=== PATIENT | female | born 1995 | race Caucasian/White ===

== ENCOUNTER 2016-11-12 19:38 | Emergency (ER) | payer MEDICAID ==
[2016-11-12 20:05] LABS: Urine Bilirubin Negative (NEGATIVE); Urine Blood Negative /ul (NEGATIVE); Urine Ketone Negative (NEGATIVE); Urine Nitrite Negative (NEGATIVE); Urine Protein Negative (NEGATIVE); Urine Specific Gravity <=1.005 SP.GR. (1.005-1.010); Urine Urobilinogen Normal (NORMAL)
[2016-11-12 20:08] LABS: Hematocrit 35.4 % (37.0-47.0); Hemoglobin 12.8 gm/dL (12.5-16.0); Mean Cell Volume 85.7 fl (78-100); Mean Corpuscular Hgb Conc 36.2 g/dl (32-36); Mean Platelet Volume 9.1 fl (6.0-9.5); Neutrophil # 3.7 K/mm3 (1.3-6.0); Neutrophil % 63.3 % (42-75.0); Platelet Count 182 K/mm3 (150-450); Red Blood Count 4.13 M/mm3 (4.2-5.4); Red Cell Distribution Width 11.8 % (11.5-14.0); White Blood Count 5.8 K/mm3 (4.0-10.5)
[2016-11-12 20:14] LABS: Urine Appearance Clear; Urine Bacteria TRACE; Urine Color Yellow; Urine RBC None Seen /hpf (0-5); Urine WBC None Seen /hpf (0-5)
--- OUTSIDE RECORDS SUMMARY | 2016-11-12 20:20 | XMS REPORT | Continuity of Care Document ---
:1995 Author Organization [facility] ([facility]) Address [address] [place] [address] Phone [phone] Care Team Providers Name Role Phone [facility] Primary Care Provider [phone] Source Comments This disclosure is being made pursuant to the Care Everywhere program, applicable federal and state laws, and may not contain all informaitonavailable regarding this patient.[facility] ([facility]) Active Allergies and Adverse Reactions No Known Allergies Current Medications Prescription Sig. Disp. Refills Start Date End Date Status metoPROLol tartrate 25 as needed. 4 03/25/2016 Active mg tablet VENTOLIN HFA 90 as needed. 11 03/08/2016 Active mcg/Actuation inhaler tobramycin-dexamethaso Instill one drop 2.5 mL 0 05/06/2016 Active ne 0.3-0.1 % in each eye that ophthalmic suspension underwent surgery four times a day for one week acetaminophen 325 mg Take 1 tablet (325 30 tablet 1 05/07/2016 Active tablet mg total) by mouth every 4 hours as needed for pain. 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 Social History Tobacco Use Types Packs/Day Years Used Date Never Assessed Last Filed Vital Signs Vital Sign Reading Time Taken Blood Pressure 101/61 05/07/2016 11:30 AM PET TECHNOLOGIST Pulse 70 05/07/2016 6:33 AM PET TECHNOLOGIST Temperature 36.7 C (98.1 F) 05/07/2016 10:16 AM PET TECHNOLOGIST Respiratory Rate 12 05/07/2016 11:30 AM PET TECHNOLOGIST Height 1.676 m (5' 5.98") 04/17/2016 4:27 PM PET TECHNOLOGIST Weight 54.9 kg (121 lb 0.5 oz) 05/07/2016 6:33 AM PET TECHNOLOGIST Body Mass Index 19.54 05/07/2016 6:33 AM PET TECHNOLOGIST Oxygen Saturation 98% 05/07/2016 11:30 AM PET TECHNOLOGIST Plan of Care Health Maintenance Due Date Last Done Comments Hepatitis B Vaccine (1 of 3 - Primary Series) 1996 HPV Vaccine (1 of 3 - Female/Unknown 3 Dose Series) 11/05/2007 Tdap Vaccine 11/05/2007 Meningococcal Vaccine (1 of 1) 2012 Lipid Disorder Screening 2014 MMR Vaccine 2014 Td Vaccine 2014 Varicella Vaccine (1 of 2 - Adult - No Evidence of 2014 Immunity) Influenza Vaccine: Seasonal (#1) 01/08/2016 Results from Last 3 Months Not on file
[2016-11-12 20:21] LABS: Albumin * 4.2 gm/dl (3.4-5.0); Anion Gap 14.6 mmol/L (6.8-13.8); BUN/Creatinine Ratio 12.3 (9.0-21.6); Bilirubin, Total 0.6 mg/dL (0.0-1.1); Ca. Corrected For Albumin 8.8 mg/dL (8.4-10.2); Calcium * 9.3 mg/dL (7.9-10.9); Carbon Dioxide 24.6 mmol/L (24-32.6); Potassium 3.2 mmol/L (3.4-4.6); Total Protein 7.4 gm/dL (6.2-8.2)
[2016-11-12] MEDS ORDERED: NORMAL SALINE 1,000 ML IV ONE (20:29)
[2016-11-12] MEDS ORDERED: KETOROLAC TROMETHAMINE 30 MG/ML VIAL ONE (20:29)
[2016-11-12] MEDS ORDERED: KETOROLAC TROMETHAMINE 30 MG/ML VIAL IV ONE (20:29)
--- NOTE | 2016-11-12 20:31 | ERNOTE ---
Abdominal HPI - General Chief Complaint: Abdominal Pain Source: patient Exam Limitations: no limitations - Immun/Allergies/Home Medications Immunizatons: IMMUNIZATION HX Immunizations Up to Date Yes History of Influenza Vaccine No Hx Pneumococcal Vaccination No Allergies/Adverse Reactions: Allergies No Known Allergies Allergy (Verified 11/12/16 19:46) Home Medications: HOME MEDICATIONS NK [No Home Medication] 06/27/15 [Last Taken Unknown] - History of Present Illness Narrative: Pt had onset of periumbilical abdominal pain around 17:00 today this progressed to right flank pain and is constant and severe Timing: constant Quality: moderate, severe Activities at Onset: none Modifying Factors - (Worsens): Present: lying down Associated Symptoms: Present: diaphoresis - mild. Absent: denies symptoms Prior Abdominal Problems: Present: none Review of Systems - Review of Systems Constitutional: Absent: recent illness, fever, chills EYE: Present: no symptoms reported ENT: Present: no symptoms reported Respiratory: Absent: shortness of breath, cough Cardiology: Absent: chest pain, palpitations Gastrointestinal/Abdominal: Present: See HPI. Absent: nausea, vomiting, constipation Genitourinary: Absent: frequency, pain, dysuria, hematuria Musculoskeletal: Absent: muscle pain Skin: Absent: rash Neurological: Present: dizziness/light-headedness. Absent: numbness, tingling Endocrine: Present: no symptoms reported Hematologic/Lymphatic: Present: no symptoms reported Psych: Present: no symptoms reported - Patient's Past Medical History Patient History - Medical: Headache, UTI'S, Other Patient History - Cardiac/Respiratory: No pertinent hx Patient History - Cancer: No Hx of Cancer Patient History - Surgical Procedures: Colonoscopy, EGD Patient History - Other: None LMP (Calendar): 10/11/16 - Family History Mother Family History - Cardiac/Respiratory: COPD - Social History Living Situations: home Abuse History: No History of abuse Psych History: No pertinent hx Does anyone smoke in the home?: Yes Smoking Status: Former smoker Have you smoked in the past 12 months: Yes Alcohol Use: none Drug Use: none - Immunizations Immunizations Up to Date: Yes Hx Pneumococcal Vaccination: No History of Influenza Vaccine: No Physical Exam - Physical Exam General Appearance: Present: wd/wn, alert, mild distress Eye Exam: Normal inspection: bilateral, PERRL: bilateral Neck: Present: normal inspection, supple Respiratory: Present: no respiratory distress, normal breath sounds, chest nontender Cardiovascular/Chest: Present: regular rate, rhythm, no murmur, normal peripheral pulses Gastrointestinal/Abdominal: Present: normal bowel sounds, tenderness - right flank. Absent: guarding, rebound, McBurney sign Back Exam: Present: CVA tenderness (R) Extremity Exam: Present: normal inspection, normal range of motion, no edema Neurological Exam: Present: alert, oriented, no motor/sensory deficits Skin Exam: Present: normal color, warm/dry Lymphatic Exam: Present: no adenopathy ED Progress - Results and Orders Patient's Lab Results:: I have reviewed the patient's lab results. Results and Orders: Laboratory Tests 11/12/16 11/12/16 11/12/16 19:52 19:52 20:02 WBC 5.8 Hgb 12.8 Hct 35.4 L Plt Count 182 Sodium Potassium Chloride Carbon Dioxide Anion Gap BUN Creatinine Est GFR (Non-Af Amer) Random Glucose Calcium Total Bilirubin AST ALT Alkaline Phosphatase Total Protein Albumin Amylase Lipase Urine Color Yellow Urine Appearance Clear Urine pH 6.0 Ur Specific [place] <=1.005 Urine Protein Negative Urine Glucose (UA) Negative Urine Ketones Negative Urine Blood Negative Urine Nitrate Negative Urine Bilirubin Negative Urine Urobilinogen Normal Ur Leukocyte Esterase Negative Urine RBC None seen Urine WBC None seen Ur Epithelial Cells 5-10 H Urine Bacteria Trace Urine Culture Comments No culture indicated Urine HCG, Qual Negative 11/12/16 20:02 WBC Hgb Hct Plt Count Sodium 141 Potassium 3.2 L Chloride 105 Carbon Dioxide 24.6 Anion Gap 14.6 H BUN 10 Creatinine 0.81 Est GFR (Non-Af Amer) 96 Random Glucose 125 H Calcium 9.3 Total Bilirubin 0.6 AST 16 ALT 15 L Alkaline Phosphatase 63 Total Protein 7.4 Albumin 4.2 Amylase 37 Lipase 117 Urine Color Urine Appearance Urine pH Ur Specific [place] Urine Protein Urine Glucose (UA) Urine Ketones Urine Blood Urine Nitrate Urine Bilirubin Urine Urobilinogen Ur Leukocyte Esterase Urine RBC Urine WBC Ur Epithelial Cells Urine Bacteria Urine Culture Comments Urine HCG, Qual - Vital Signs Patient's Vital Signs:: I have reviewed the patient's vital signs. Vital Signs: Vital Signs 11/12/16 11/12/16 19:41 19:58 Temperature 37.3 C 37.3 C Pulse Rate 120 H 120 H Respiratory 24 H 24 H Rate Blood Pressure 152/70 152/70 O2 Sat by Pulse 100 100 Oximetry - Progress/Reassessment Chief Complaint: Abdominal Pain Progress:: Improved Progress Note-Subjective: 11/13/16 03:58 discussed mostly normal lab work and x-rays showing moderate stool retention. Pt states that she does have a chronic problem with constipation for which she is taking a fiber supplement. She occasionally takes a laxative when she hasn' t had a BM for more than a week. Departure - Departure Clinical Impression: Constipation Qualifiers: Constipation type: slow transit constipation Qualified Code(s): K59.01 - Slow transit constipation Disposition: Home self-care Condition: Good Instructions: Constipation, Adult, [id number] Additional Instructions: continue to drink plenty of water and take a laxative if you have not had a BM for 3-4 days. See your regular doctor as needed
[2016-11-12] MEDS ORDERED: MAGNESIUM HYDROXIDE 30 ML UDC PO ONE (21:59)
[2016-11-12 22:07] VITALS: BP 101/59
== END 2016-11-12 22:08 | disposition home or self-care (01) ==
LOC: ER 19:38
DX: K59.01 Slow transit constipation (principal); Z87.440 Personal history of urinary (tract) infections; Z87.891 Personal history of nicotine dependence

== ENCOUNTER 2017-01-14 20:32 | Emergency (ER) | payer MEDICAID ==
[2017-01-14] MEDS ORDERED: ONDANSETRON HCL/PF 2 MG/ML VIAL IV ONE (21:22)
--- NOTE | 2017-01-14 21:31 | ERNOTE ---
Dizziness ER Record Presenting Symptoms: dizziness Time Seen by Provider: 01/14/17 21:14 Source: patient, family Exam Limitations: no limitations Immunizations: IMMUNIZATION HX Immunizations Up to Date Yes History of Influenza Vaccine No Hx Pneumococcal Vaccination No Allergies/Adverse Reactions: Allergies Allergy/AdvReac Type Severity Reaction Status Date / Time No Known Allergies Allergy Verified 11/12/16 19:46 Home Medications: HOME MEDICATIONS Metoprolol/Hydrochlorothiazide [Metoprolol-Hctz 100-25 mg Tab] 1 each PO DAILY 01/14/17 [Last Taken Unknown] - History of Present Illness Narrative: pt states that she has neurogenic syncope and before she passes out she usually sees spots in her vision and gets dizzy. She states she has had these symptoms this evening but has not passed out. She has been to the ED previously for this issue Timing and Duration: gradual onset Episodes lasting:: 10 minutes up to many hours Noted on awakening:: No Associated Symptoms: Present: nausea. Absent: vomiting Sense of movement: Present: vague Review of Systems - Review of Systems Constitutional: Absent: recent illness EYE: Present: no symptoms reported ENT: Present: no symptoms reported Respiratory: Present: no symptoms reported Cardiology: Present: no symptoms reported Genitourinary: Present: frequency, dysuria Musculoskeletal: Absent: back pain Neurological: Absent: headache - Patient's Past Medical History Patient History - Medical: Headache, UTI'S, Other Patient History - Cardiac/Respiratory: No pertinent hx, Arrhythmias Patient History - Cancer: No Hx of Cancer Patient History - Surgical Procedures: Colonoscopy, EGD Patient History - Other: None LMP (females 10-50): 3 weeks LMP (Calendar): 10/11/16 - Family History Mother Family History - Cardiac/Respiratory: COPD - Social History Living Situations: home Abuse History: No History of abuse Psych History: No pertinent hx Does anyone smoke in the home?: Yes Smoking Status: Current every day smoker Have you smoked in the past 12 months: Yes Do you dip or chew tobacco: No Patient requests Smoking Cessation Consult: No Initiate information on Smoking Cessation: No Alcohol Use: none Drug Use: none - Immunizations Immunizations Up to Date: Yes Hx Pneumococcal Vaccination: No History of Influenza Vaccine: No Physical Exam - Physical Exam General Appearance: Present: wd/wn, alert, no apparent distress Head Exam: Present: normal inspection, no evidence of injury Eye Exam: Normal inspection: bilateral, PERRL: bilateral Ears, Nose, Throat: Present: normal ENT inspection Neck: Present: normal inspection, nontender Respiratory: Present: no respiratory distress, normal breath sounds, lungs clear Cardiovascular/Chest: Present: regular rate, rhythm, no murmur Gastrointestinal/Abdominal: Present: normal bowel sounds, nontender Back Exam: Present: normal inspection, normal range of motion, no vertebral tenderness Extremity Exam: Present: normal inspection, normal range of motion, no edema Neurological Exam: Present: alert, oriented, normal mood/affect, no motor/ sensory deficits Skin Exam: Present: normal color, warm/dry Lymphatic Exam: Present: no adenopathy ED Progress - Results and Orders Patient's Lab Results:: I have reviewed the patient's lab results. Results and Orders: Laboratory Tests 01/14/17 01/14/17 01/14/17 20:53 22:18 22:18 WBC 9.0 Hgb 12.6 Hct 36.3 L Plt Count 166 Sodium 142 Potassium 3.3 L Chloride 106 Carbon Dioxide 25.3 BUN 6 Creatinine 0.65 Random Glucose 107 Calcium 8.7 AST 13 ALT 13 L Urine Color Yellow Urine Appearance Clear Urine pH 6.5 Ur Specific [place] <=1.005 Urine Protein Negative Urine Glucose (UA) Negative Urine Ketones Negative Urine Blood Negative Urine Nitrate Negative Urine Bilirubin Negative Urine Urobilinogen Normal Ur Leukocyte Esterase Negative Urine RBC None seen Urine WBC None seen Ur Epithelial Cells 0-5 Urine Bacteria Trace Urine Culture Comments No culture indicated - Vital Signs Patient's Vital Signs:: I have reviewed the patient's vital signs. Vital Signs: Vital Signs 01/14/17 01/14/17 20:41 20:55 Temperature 36.7 C Pulse Rate 83 77 Respiratory 16 20 Rate Blood Pressure 132/80 119/57 O2 Sat by Pulse 99 99 Oximetry - Progress/Reassessment Chief Complaint: Dizziness Progress:: Improved Progress Note-Subjective: Pt much better after getting zofran. labs mostly WNL. Slight decrease in potassium discussed with patient and foods high in potassium suggested to keep her potassium level up. Departure Clinical Impression: Visual symptoms, Nausea - Departure Disposition: Home Follow Up Needed Condition: Good Instructions: Nausea, Adult, Visual Disturbances Additional Instructions: See your regular doctor as needed. increase your potassium intake. Referrals: Marylin Francis MD [Primary Care Provider] -
[2017-01-14] MEDS ORDERED: ONDANSETRON HCL/PF 2 MG/ML VIAL ONE (21:33)
[2017-01-14 21:38] LABS: Urine Bilirubin Negative (NEGATIVE); Urine Blood Negative /ul (NEGATIVE); Urine Ketone Negative (NEGATIVE); Urine Nitrite Negative (NEGATIVE); Urine Protein Negative (NEGATIVE); Urine Specific Gravity <=1.005 SP.GR. (1.005-1.010); Urine Urobilinogen Normal (NORMAL); Urine pH 6.5 pH (5.0-7.0)
[2017-01-14 21:50] LABS: Urine Appearance Clear; Urine Bacteria TRACE; Urine Color Yellow; Urine RBC None Seen /hpf (0-5); Urine WBC None Seen /hpf (0-5)
[2017-01-14 22:18] LABS: Hematocrit 36.3 % (37.0-47.0); Hemoglobin 12.6 gm/dL (12.5-16.0); Mean Cell Volume 88.5 fl (78-100); Mean Corpuscular Hemoglobin 30.7 pg (27-31); Mean Corpuscular Hgb Conc 34.7 g/dl (32-36); Mean Platelet Volume 9.2 fl (6.0-9.5); Neutrophil # 6.4 K/mm3 (1.3-6.0); Neutrophil % 70.8 % (42-75.0); Platelet Count 166 K/mm3 (150-450); Red Cell Distribution Width 11.9 % (11.5-14.0)
[2017-01-14 22:29] VITALS: BP 96/57
[2017-01-14 22:31] LABS: Albumin * 3.9 gm/dl (3.4-5.0); BUN/Creatinine Ratio 9.2 (9.0-21.6); Bilirubin, Total 0.3 mg/dL (0.0-1.1); Ca. Corrected For Albumin 8.5 mg/dL (8.4-10.2); Calcium * 8.7 mg/dL (7.9-10.9); Carbon Dioxide 25.3 mmol/L (24-32.6); Potassium 3.3 mmol/L (3.4-4.6); Total Protein 6.9 gm/dL (6.2-8.2)
== END 2017-01-14 22:43 | disposition home or self-care (01) ==
LOC: ER 20:32
DX: H57.9 Unspecified disorder of eye and adnexa (principal); R11.0 Nausea; Z87.440 Personal history of urinary (tract) infections; F17.200 Nicotine dependence, unspecified, uncomplicated
CPT/HCPCS: 36415; 80053; 81001; 85025; 96374; 99283; J2405

== ENCOUNTER 2017-03-17 21:33 | Emergency (ER) | payer MEDICAID, OTHER ==
[2017-03-17 21:47] VITALS: BP 121/82
--- NOTE | 2017-03-17 22:06 | ERNOTE ---
Lower Extremity HPI - General Lower Extremities Pain: ankle: right - medial pain Time Seen by Provider: 03/17/17 21:54 Source: patient Exam Limitations: no limitations - Immun/Allergies/Home Medications Immunizations: IMMUNIZATION HX Immunizations Up to Date Yes History of Influenza Vaccine Yes Hx Pneumococcal Vaccination Yes Allergies/Adverse Reactions: Allergies Allergy/AdvReac Type Severity Reaction Status Date / Time No Known Allergies Allergy Verified 03/17/17 21:47 Home Medications: HOME MEDICATIONS Metoprolol/Hydrochlorothiazide [Metoprolol-Hctz 100-25 mg Tab] 1 each PO DAILY 01/14/17 [Last Taken Unknown] Albuterol Sulfate [Proair Hfa] 8.5 gm IH PRN PRN 03/17/17 [Last Taken Unknown] Nabumetone 750 mg PO BID #20 tablet 03/17/17 [Last Taken Unknown] - History of Present Illness Narrative: 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 It was mildly uncomfortable then. Yesterday the pain increased and today she states the pain is much worse. Occurred: other - 2 days ago Location of Incident: work Method of Injury: Reports: twisted Reason for Fall: Reports: tripped Loss of Consciousness: Reports: no loss of consciousness Modifying Factors - (Improves): Reports: cold therapy Modifying Factors - (Worsens): Reports: movement Associated Symptoms: Reports: snapping, popping sensation - since the incident Other Injuries: Reports: none Subsequent Symptoms: Denies: sensory loss, numbness, motor loss Review of Systems - Review of Systems Constitutional: Absent: recent illness EYE: Present: no symptoms reported ENT: Present: no symptoms reported Respiratory: Present: no symptoms reported Cardiology: Present: no symptoms reported Musculoskeletal: Present: See HPI. Absent: back pain Skin: Absent: rash Neurological: Absent: numbness, tingling - Patient's Past Medical History Patient History - Medical: Headache, UTI'S, Other Patient History - Cardiac/Respiratory: No pertinent hx, Arrhythmias Patient History - Cancer: No Hx of Cancer Patient History - Surgical Procedures: Colonoscopy, EGD Patient History - Other: None LMP (females 10-50): now - Family History Mother Family History - Cardiac/Respiratory: COPD - Social History Living Situations: home Abuse History: No History of abuse Psych History: No pertinent hx Smoking Status: Current every day smoker Alcohol Use: none Drug Use: none - Immunizations Immunizations Up to Date: Yes Hx Pneumococcal Vaccination: Yes History of Influenza Vaccine: Yes Physical Exam - Physical Exam General Appearance: Present: wd/wn, alert, no apparent distress Head Exam: Present: normal inspection, no evidence of injury Ears, Nose, Throat: Present: normal ENT inspection Neck: Present: normal inspection, nontender Respiratory: Present: no respiratory distress, no accessory muscle use Peripheral Pulses: N=norm/S=strong/W=weak/B=bound/A=absent: Dorsalis-pedis (R): Normal, Dorsalis-pedis (L): Normal Back Exam: Present: normal inspection, normal range of motion Extremity Exam: Present: normal range of motion - but with pain in all directions, bony tenderness - medial maleolus posteriorly and 1st MT head Neurological Exam: Present: alert, oriented, normal mood/affect, no motor/ sensory deficits Skin Exam: Present: normal color, warm/dry Lymphatic Exam: Present: no adenopathy ED Progress - Vital Signs Vital Signs: Vital Signs 03/17/17 21:42 Temperature 36.7 C Pulse Rate 68 Respiratory 16 Rate Blood Pressure 121/82 O2 Sat by Pulse 99 Oximetry - X-Ray X-Ray #1 X-Ray: ankle - right Interpretation: Interp. by me X-ray Comments: great toe appeared to be plantar flexed in both AP views, lateral view appeared normal. No fracture or dislocation - Progress/Reassessment Chief Complaint: Ankle Injury/ Pain Progress:: Unchanged Progress Note-Subjective: 03/17/17 22:42 reexamined the foot after seeing the x-rays. No abnormalities present visually. 1st metatarsal and great toe have good ROM without any evidence of dislocation or abnormal position. Pt denies any abnormal position during x- ray. Pt was able to walk to radiology and back fairly normally. 03/17/17 23:36 Departure Clinical Impression: Ankle sprain Qualifiers: Encounter type: initial encounter Involved ligament of ankle: unspecified ligament Laterality: right Qualified Code(s): S93.401A - Sprain of unspecified ligament of right ankle, initial encounter - Departure Disposition: Home self-care Condition: Good Instructions: Ankle Sprain Additional Instructions: take prescription medication for 5-7 days as directed then you may take as needed. Prescriptions: Nabumetone 750 mg PO BID #20 tablet
[2017-03-17] MEDS ORDERED: KETOROLAC TROMETHAMINE 60 MG/2 ML VIAL IM ONE ×2 (22:40)
== END 2017-03-17 22:53 | disposition home or self-care (01) ==
LOC: ER 21:33
DX: S93.401A Sprain of unspecified ligament of right ankle, initial encounter (principal); F17.200 Nicotine dependence, unspecified, uncomplicated; X58.XXXA Exposure to other specified factors, initial encounter; Y93.89 Activity, other specified; Y92.89 Other specified places as the place of occurrence of the external cause; Y99.0 Civilian activity done for income or pay

== ENCOUNTER 2017-03-20 23:59 | Emergency (ER) | payer MEDICAID, OTHER ==
[2017-03-21 00:13] VITALS: BP 123/71
== END 2017-03-21 01:23 | disposition left against medical advice (07) ==
LOC: ER 23:59
DX: Z53.21 Procedure and treatment not carried out due to patient leaving prior to being seen by health care provider (principal)

== ENCOUNTER 2017-04-01 21:29 | Emergency (ER) | payer MEDICAID ==
[2017-04-01 21:43] VITALS: BP 131/77
[2017-04-01] MEDS ORDERED: HYDROcodone/ACETAMINOPHEN 1 EACH TABLET ONE (22:09)
[2017-04-01] MEDS ORDERED: HYDROcodone/ACETAMINOPHEN 1 EACH TABLET PO ONE (22:09)
--- NOTE | 2017-04-01 22:09 | ERNOTE ---
ENT HPI Date of Service: 04/01/17 Presenting Symptoms: dental pain Time Seen by Provider: 04/01/17 21:39 Source: patient - Immun/Allergies/Home Medications Immunizations: IMMUNIZATION HX Immunizations Up to Date Yes History of Influenza Vaccine No Hx Pneumococcal Vaccination Yes Allergies/Adverse Reactions: Allergies Allergy/AdvReac Type Severity Reaction Status Date / Time No Known Allergies Allergy Verified 04/01/17 21:43 Home Medications: HOME MEDICATIONS Amoxicillin 500 mg PO TID 04/01/17 [Last Taken Unknown] HYDROcodone/ACETAMINOPHEN [[place] 5-325] 1 each PO Q4H PRN #6 tablet 04/01/17 [ Last Taken Unknown] Metoprolol Tartrate [Lopressor] 25 mg PO PRN 04/01/17 [Last Taken Unknown] - History of Present Illness Narrative: This 21-year-old female had wisdom teeth removed on Friday of last week. The patient says that she feels like the gums on that side are sticking to her tooth. She denies any fever or chills she is complaining of pain no other complaints Review of Systems - Review of Systems Constitutional: Present: no symptoms reported EYE: Present: no symptoms reported ENT: Present: other - dental pain swelling and difficulty opening mouth due to pain Respiratory: Present: no symptoms reported Cardiology: Present: no symptoms reported Gastrointestinal/Abdominal: Present: no symptoms reported Genitourinary: Present: no symptoms reported Musculoskeletal: Present: no symptoms reported Skin: Present: no symptoms reported Neurological: Present: no symptoms reported Endocrine: Present: no symptoms reported Hematologic/Lymphatic: Present: no symptoms reported Psych: Present: no symptoms reported All Other Systems: All systems neg except as marked - Patient's Past Medical History Patient History - Medical: Headache, UTI'S, Other Patient History - Cardiac/Respiratory: No pertinent hx, Arrhythmias Patient History - Cancer: No Hx of Cancer Patient History - Surgical Procedures: Colonoscopy, EGD, Other Patient History - Other: None LMP (Calendar): 03/10/17 - Family History Mother Family History - Cardiac/Respiratory: COPD - Social History Living Situations: home Abuse History: No History of abuse Psych History: No pertinent hx Smoking Status: Current every day smoker Alcohol Use: none Drug Use: none - Immunizations Immunizations Up to Date: Yes Hx Pneumococcal Vaccination: Yes History of Influenza Vaccine: No Physical Exam - Physical Exam General Appearance: Present: wd/wn, alert, no apparent distress Head Exam: Present: normal inspection, no evidence of injury Eye Exam: Normal inspection: bilateral, PERRL: bilateral Ears, Nose, Throat: Present: other - patient has significant swelling of the right jaw near the inferior third molar area. The gums are not sticking to the tooth but the swelling has caused the gums to in vaginitis in to a Shu present within this tooth. Gentle pressure easily remove this. Neck: Present: normal inspection, nontender Respiratory: Present: no respiratory distress, no accessory muscle use, lungs clear Cardiovascular/Chest: Present: regular rate, rhythm, no murmur, normal peripheral pulses Extremity Exam: Present: normal inspection Neurological Exam: Present: alert, oriented, normal mood/affect Skin Exam: Present: normal color, warm/dry Lymphatic Exam: Present: no adenopathy ED Progress - Vital Signs Vital Signs: Vital Signs 04/01/17 21:38 Temperature 36.5 C Pulse Rate 77 Respiratory 18 Rate Blood Pressure 131/77 O2 Sat by Pulse 100 Oximetry - Progress/Reassessment Chief Complaint: Dental Problem Progress Note-Subjective: 04/01/17 21:56 Patient was anesthetized as a left mandibular nerve block (inferior alveolar) using a one-to-one solution of 0.5% Marcaine and 1% lidocaine with epinephrine. Patient tolerated well. Had nearly instantaneous onset of anesthesia 04/01/17 22:05 The patient had the second molar on the buccal aspect irrigated copiously with pressure water. Significant particulate food material was removed. There is no place where the gum is actually sticking to the tooth, the swelling is pushing against the tooth. Departure Clinical Impression: Gum disease - Departure Disposition: Home self-care Condition: Stable Additional Instructions: As we discussed, the swelling from your wisdom teeth removal has gotten better, but there is food trapped between her gum and the tooth. This is the second molar, the one you need to have a root canal on. That food is caused inflammation and swelling of the gums in this area further trapping more food. We have irrigated that out and removed all of the food material. When you get home and want you to brush her teeth in that area vigorously. I've given you a syringe with a plastic tip which will allow you to spray out material that gets caught in her teeth. Continue to use the mouthwash as you have planned. Take extra care to make sure that area gets lots of exposure to the mouthwash. Call your dentist and set up a follow-up appointment. Certainly if he developed new worrisome symptoms she should return to the ER. You should take 600 mg of ibuprofen every 6 hours for at least 5 days. This will help with the inflammation. Referrals: Lorenzo Francis MD [Primary Care Provider] - Prescriptions: HYDROcodone/ACETAMINOPHEN [[place] 5-325] 1 each PO Q4H PRN #6 tablet PRN Reason: Pain
== END 2017-04-01 22:10 | disposition home or self-care (01) ==
LOC: ER 21:29
PROC: 3E0T3BZ Introduction of Anesthetic Agent into Peripheral Nerves and Plexi, Percutaneous Approach (ICD-10-PCS; principal; 2017-04-01)
DX: K06.9 Disorder of gingiva and edentulous alveolar ridge, unspecified (principal); R68.84 Jaw pain; Z87.440 Personal history of urinary (tract) infections; I49.9 Cardiac arrhythmia, unspecified; F17.200 Nicotine dependence, unspecified, uncomplicated